=== PATIENT | male | born 1975 | race Asian ===

== ENCOUNTER 2024-02-06 20:44 | Emergency (ER) | payer OTHER, MEDICAID ==
[~2024-02-06] VITALS: Ht 172.7 cm; Wt 82.3 kg
[2024-02-06 20:53] VITALS: BP 153/115; PULSE 86; RESP 20; TEMP 97.8
[2024-02-07] MEDS: KETOROLAC TROMETHAMINE 60 MG/2 ML VIAL IM ONE (00:35)
[2024-02-07] MEDS ORDERED: IBUP-1492 PO (01:40)
[2024-02-07] MEDS ORDERED: METH-812 PO (01:40)
== END 2024-02-07 02:00 | disposition home or self-care (01) ==
LOC: EMS 20:44
DX: S13.4XXA Sprain of ligaments of cervical spine, initial encounter (principal); J45.909 Unspecified asthma, uncomplicated; V89.2XXA Person injured in unspecified motor-vehicle accident, traffic, initial encounter; Y93.89 Activity, other specified; Y92.89 Other specified places as the place of occurrence of the external cause; Y99.8 Other external cause status
CPT/HCPCS: 99283; 72040; 96372; J1885